=== PATIENT | male | born 1945 | race Caucasian/White ===

== ENCOUNTER → 2016-09-11 | Outpatient (CLI) | payer OTHER, MEDICARE ==
--- NOTE | 2016-09-11 13:53 | MR ---
MRI Lower Extremity, Left Leg. History: Posterior calf pain left leg. Evaluate for gastrocnemius tear. Technique: MRI lower extremity, left leg. [id number] includes the tibia and fibula. Sagittal, christiano nal, and axial imaging was obtained with standard imaging sequences. Findings: A lobulated heterogeneous fluid collection with septations with the appearance of a hematom a is seen in the medial head of the gastrocnemius. This is seen within the muscle and along the fasci al plane between the muscle and soleus extending craniocaudal 17.4 cm x 6.3 cm, anterior to posterior x 2.3 cm. The hematoma extends caudally the distal musculotendinous junction from the fas paola adjacent to the soleus indicating complete or near complete tear at the distal musculotendinous j unction. There is a component of intramuscular tear and hematoma. Mild edema is seen in the soleus an d lateral gastrocnemius without muscle irregularity or hematoma. Central tendon and Achilles tendon a re intact. No significant bone marrow abnormality is visualized. Impression: Evidence of tear of the medial head of the gastrocnemius with intramuscular hematoma and hematoma dissecting the medial head of the gastrocnemius from the deep fascia to the soleus at the mu sculotendinous junction.
== END ==
LOC: FIMAGING 12:25
PROVIDERS: ATTEND Orthopaedic Surgery Foot and Ankle Surgery
DX: S86.812A Strain of other muscle(s) and tendon(s) at lower leg level, left leg, initial encounter (principal)

== ENCOUNTER → 2016-12-07 | Outpatient (CLI) | payer OTHER, MEDICARE | LOC: CIMAGING 13:54 | PROVIDERS: ATTEND Family Medicine | DX: M50.222 Other cervical disc displacement at C5-C6 level (principal); M43.12 Spondylolisthesis, cervical region; M46.92 Unspecified inflammatory spondylopathy, cervical region | CPT/HCPCS: 72052-PO ==

== ENCOUNTER → 2017-03-01 | Outpatient (CLI) | payer OTHER, MEDICARE ==
[~2017-03-01] MED LIST: IOPAMIDOL (ISOVUE-300) 100 ML BTL ONE
== END ==
LOC: CIMAGING 13:10
PROVIDERS: ATTEND Family Medicine
DX: M43.02 Spondylolysis, cervical region (principal); M48.02 Spinal stenosis, cervical region; M54.2 Cervicalgia; I77.9 Disorder of arteries and arterioles, unspecified; Z85.819 Personal history of malignant neoplasm of unspecified site of lip, oral cavity, and pharynx; Z85.850 Personal history of malignant neoplasm of thyroid
CPT/HCPCS: 70491; Q9967

== ENCOUNTER → 2017-04-05 | Outpatient (CLI) | payer OTHER, MEDICARE | LOC: FIMAGING 06:44 | PROVIDERS: ATTEND Family Medicine | DX: M48.02 Spinal stenosis, cervical region (principal) ==